=== PATIENT | male | born 1975 | race Caucasian/White ===

== ENCOUNTER 2019-02-25 05:33 | Observation (INO) | payer SELFPAY ==
[2019-02-25] VITALS (10 sets, daily range): BP systolic 110–142; BP diastolic 75–93; PULSE 76–89; RESP 16–25; TEMP 36.4–37.2; O2SAT 96–100; BMI 23.0; BMI 22.7; BMI 22.8
--- NOTE | 2019-02-25 05:49 | EKG12_ITS ---
Test Reason : CP ADMISSION Blood Pressure : / mmHG Vent. Rate : 078 BPM Atrial Rate : 078 BPM P-R Int : 170 ms QRS Dur : 114 ms QT Int : 416 ms P-R-T Axes : 029 006 021 degrees QTc Int : 474 ms Normal sinus rhythm Normal ECG When compared with ECG of 25-FEB-2019 05:32, MANUAL COMPARISON REQUIRED, DATA IS UNCONFIRMED Confirmed by AYAH BALDWIN, ANILA ([id number]), news assignment editor REID BARON ([id number]) on 02/26/2019 1:25:53 PM Referred By: LEEANN Confirmed By:ANA LILIA POON MD
--- NOTE | 2019-02-25 05:49 | RAD_ITS ---
STUDY: X-RAY CHEST REASON FOR EXAM: Male, 43 years old. CP AND SOB X 3 DAYS TECHNIQUE: Frontal and lateral views of the chest. COMPARISON: None. FINDINGS: The lungs are clear and expanded. There is no demonstrated pleural abnormality. Normal size heart. Normal mediastinum and meng. Normal visualized pulmonary arteries. Normal visualized aortic arch and descending thoracic aorta. Normal visualized thoracic spine. Normal visualized ribs, clavicles, and shoulders. There is no demonstrated abnormality of the visualized soft tissue structures of the upper abdomen. RAD/Chest PA and Lateral IMPRESSION: Normal x-ray examination of the chest. Electronically Signed: Ankur Mobley MD at 6:11 EST Tel , Service support ,
--- NOTE | 2019-02-25 05:50 | VDLE_ITS ---
Reason For Study: Pain RIGHT LEFT CFV is compressible, spontaneous, phasic, GSV is normal. competent and demonstrates normal CFV is compressible, spontaneous, phasic, augmentation. competent, and demonstrates normal Procedure augmentation. Exam performed portable in patient room. FV is compressible, spontaneous, phasic, A preliminary report was called and/or faxed competent and demonstrates normal to PCU. augmentation. POP V is compressible, spontaneous, phasic, competent and demonstrates normal augmentation. T/P Trunk is compressible. PTV is compressible. LT PerV is compressible. Interpretation Summary There is no evidence of left lower extremity deep vein thrombosis. Left great saphenous vein appears patent and compressible segmentally. Patent and compressible right common femoral vein Ordering Physician: Benjamin David Performed By: Tiarra Latham RVT
--- NOTE | 2019-02-25 05:52 | ED.VIS.GEN ---
History of Present Illness Chief Complaint: Chest Pain Narrative: Patient is a 43-year-old male who presents with chest pain and shortness of breath. He states he initially developed symptoms 3 days ago with left leg cramping and pain which has since resolved. He also complains of 3 days of chest pain in the center of his chest. When asked to characterize this he states it is both heavy and sharp. His symptoms are worse with exertion. He also feels short of breath and complains of shortness of breath with exertion. He states this morning when he woke up he was soaked diaphoretic and nauseated. He reports a prior history of a heart attack due to low potassium. It does not sound like he has a history of coronary disease. He has had a normal stress test never had a cardiac catheterization or stents. He is not a smoker. No diabetes or hyperlipidemia. He was previously diagnosed with hypertension and prescribed medications but no longer takes these but has been told on recent appointments regarding an arm injury that his blood pressure was high and he needed to follow-up for this. There is not a family history of coronary artery disease at age less than 55. Patient denies DVT risk factors such as recent travel, surgery, known coagulopathies, prior DVT, recent hospitalization. Past Medical History - Allergies and Home Meds Allergies/Adverse Reactions: Allergies amoxicillin Allergy (Verified 02/25/19 05:34) Hives ketorolac [From Toradol] Allergy (Verified 02/25/19 05:34) Hives Primary Care Physician: NOT,DEFINED [NON-STAFF] - Past Medical History: - - Hypertension, untreated Smoking Status: Never smoker Review of Systems All systems negative except as indicated General: Reports: Sweats. Denies: Fever Eyes: Denies: Visual changes - bilaterally Cardiovascular: Reports: Chest pain Respiratory: Reports: Dyspnea Gastrointestinal: Reports: Nausea. Denies: Vomiting Musculoskeletal: Reports: Myalgias Skin: Denies: Rash Neurological: Denies: Headache Hematologic: Denies: Easy bruising Allergy: Denies: Uticaria Physical Exam Vital Signs/Narrative: Vital Signs Temp Pulse Resp BP Pulse Ox 02/25/19 05:35 97.6 F L 89 25 H 142/88 H 100 Inital Vital Signs reviewed: Yes General: Well nourished, Well developed Head: Normocephalic Eyes: EOMI ENT: Moist mucous membranes Neck: Supple Cardiovascular: Regular rate, Regular rhythm, - - Easily palpable distal pulses Respiratory: No distress, CTA bilaterally Abdomen: Soft, Nontender, Nondistended Extremities: Nontender, No edema Skin: Normal color Neurological: Alert Psychological: Normal affect Diagnostic/Tx/Re-eval Impressions Chest X-Ray 02/25/19 05:49 IMPRESSION: Normal x-ray examination of the chest. Electronically Signed: Ankur Mobley MD at 6:11 EST Tel , Service support , 02/25/19 05:49 Chest PA and Lateral [RAD] Stat Laboratory Results 02/25/19 02/25/19 02/25/19 05:40 05:40 05:40 WBC 8.1 RBC 5.28 Hgb 16.1 Hct 47.3 MCV 89.6 MCH 30.5 MCHC 34.0 RDW Std Deviation 39.8 RDW Coeff of Karen 12.1 Plt Count 272 MPV 9.7 Immature Gran % (Auto) 0.400 Neut % (Auto) 68.7 Lymph % (Auto) 21.9 [place] % (Auto) 7.8 Eos % (Auto) 1.0 Baso % (Auto) 0.2 Absolute Neuts (auto) 5.5 Absolute Lymphs (auto) 1.76 Nucleated RBC % 0 D-Dimer Quant (PE/DVT) < 0.27 L Sodium 139 Potassium 3.8 Chloride 101 Carbon Dioxide 29.0 Anion Gap 9 BUN 12 Creatinine 1.05 Estim Creat Clear Calc 84.81 Est GFR (MDRD) Af Amer 99 Est GFR (MDRD) Non-Af 82 BUN/Creatinine Ratio 11.4 Glucose 111 H Calcium 9.8 Troponin I < 0.015 - Medical Decision Making Some of the patient's symptoms are concerning for possible DVT or pulmonary embolism while other features could suggest cardiac ischemia/angina. Patient placed on cardiac monitoring. He was given aspirin and nitroglycerin. EKG shows normal sinus rhythm at a rate of 90 with no acute ischemic changes. Patient did report improvement in symptoms with nitroglycerin although he did develop a headache. He was given Tylenol. Chest x-ray shows no acute process and laboratory studies were unremarkable with a negative troponin and negative d-dimer. Patient's heart score is 3. However I am concerned given his classic description of some symptoms with dyspnea on exertion, nausea, diaphoresis, improvement with nitroglycerin. Therefore I do still feel he should be placed in observation for serial enzymes and stress testing. Patient discussed with the hospitalist who agrees to admit. ED Disposition - Plan for ED Patient: Disposition: Acute [facility] Diagnosis: Chest pain Referrals: NOT,DEFINED [NON-STAFF] -
[2019-02-25 06:01] LABS: Absolute Lymphocyte Count 1.76 X10^3/uL (0.83-4.51); Absolute Neutrophil Count 5.5 X10^3/uL (2.0-7.7); Basophil# 0.02 X10^3/uL; Basophil% 0.2 % (0-1); Eosinophil# 0.08 X10^3/uL; Hematocrit 47.3 % (40-54); Hemoglobin 16.1 g/dL (13.0-16.5); Lymphocyte # 1.76 X10^3/ul (4.0); Lymphocyte % 21.9 % (19-41); Mean Corpuscular Hgb 30.5 pg (27.0-32.0); Mean Corpuscular Volume 89.6 fL (80-94); Mean Platelet Vol. 9.7 fl (6.2-12.0); Monocyte# 0.63 X10^3/uL; Monocyte% 7.8 % (0-10); NRBC Flagged by Analyzer 0 % (0-5); Neutrophil # 5.53 X10^3/uL (2.7-7.7); Neutrophil % 68.7 % (47-70); Platelet Count 272 K/mm3 (150-450); RBC Distribution Width CV 12.1 % (11.6-14.6); RBC Distribution Width SD 39.8 fl (35.1-43.9); Red Blood Count 5.28 M/mm3 (4.6-6.2); White Blood Count 8.1 K/mm3 (4.4-11.0)
[2019-02-25] MEDS: Aspirin 81 MG TAB.CHEW 324 MG PO (06:05)
[2019-02-25] MEDS: Nitroglycerin SL (ED/IMG/CATH) 0.4 MG TABLET SUBLINGUAL ×3 (06:10→06:14)
[2019-02-25 06:14] LABS: Anion Gap 9 (5-15); BUN 12 mg/dL (7-18); BUN/Creat Ratio 11.4 RATIO (10-20); Calcium,Total 9.8 mg/dL (8.5-10.1); Chloride 101 mmol/L (98-107); Creatinine, Serum 1.05 mg/dL (0.70-1.30); EST Glomerular Filtration Rate 82 mL/min (>60); Est Glom Filt Rate - Afr Amer 99 mL/min (>60); Estimated Creatinine Clearance 84.81 ml/min; Glucose 111 mg/dL (74-106); Potassium 3.8 mmol/L (3.5-5.1); Sodium Level 139 mmol/L (136-145)
[2019-02-25 06:17] LABS: D-Dimer Quantitative (DVT/PE) < 0.27 FEU/ug/m (0.27-0.49)
[2019-02-25] MEDS: Acetaminophen 500 MG Tablet 1000 MG PO (06:19)
--- NOTE | 2019-02-25 06:25 | HP.PCM_ITS ---
Problem List (1) Chest pain Status: Acute Qualifiers: Chest pain type: unspecified Qualified Code(s): R07.9 - Chest pain, unspecified History of Present Illness Date of Admission: 02/25/19 Chief Complaint: Chest pain - 3-4 days The patient is a 43 year old M with remote history of hypertension, not on medication, fairly healthy who comes in with complaints of substernal chest pain that radiates to his back, associated with diaphoresis and dizziness but no palpitations or presyncope or syncope. His chest pain started 3 to 4 days ago. Got worse last night. He woke up soaked in sweat. He denies any history of smoking. No history of heart disease. He has a history of hypokalemia for which his potassium was said to be 1.9 years ago and that was corrected. He also complains of cramps and pain in his left calf Vitals in the ED showed pressure of 97.6F, heart rate 89, blood pressure 142/88, respiratory 25, SPO2 was 100% on room air. His admitting blood work showed unremarkable CBC D as well as BMP. D-dimer was less than 0.27. Troponin was 0.015. EKG showed normal sinus rhythm with no acute ST changes. Past Medical History Allergies amoxicillin Allergy (Verified 02/25/19 05:34) Hives ketorolac [From Toradol] Allergy (Verified 02/25/19 05:34) Hives Home Medications: Ambulatory Orders Medication Instructions Recorded NK 02/25/19 Surgical History: appendectomy Psychiatric History: No pertinent psych hx Lives: Alone Smoking Status: Never smoker Tobacco Use: Chew Alcohol: None Drugs: None - *Family History Maternal History Items: Hypertension Paternal History Items: Hypertension Review of Systems Constitutional: Reports: Anorexia, Malaise, Weakness, Fatigue. Denies: Chills, Fever, Weight Change Eyes: Denies: Blurred vision, Cataracts, Conjunctivae Inflammation, Pain, Redness, Vision Change HEENT: Denies: Difficulty Hearing, Difficulty Swallowing, Head Aches, Hearing Changes, Nasal bleeding, Sinus Congestion, Sinus Drainage Cardiovascular: Reports: Chest Pain, Chest Pressure, Chest Tightness, Light Headedness. Denies: Palpitations, Paroxysmal Noc. Dyspnea, Syncope Respiratory: Denies: Cough, Hemoptysis, Shortness of breath at rest, Shortness of breath upon exertion, Sputum production Gastrointestinal: Denies: Abdominal Pain, Hematemesis, Hematochezia, Nausea, Vomiting Genitourinary: Denies: Dysuria, Frequency, Incontinence Musculoskeletal: Denies: Joint Pain, Joint stiffness, Joint swelling, Joint Tenderness Skin: Denies: Pruritis, Rash, Wounds Neurological: Denies: Difficulty swallowing, Focal weakness, Numbness, Tingling Psychiatric: Denies: Anxiety, Depression, Homicidal Ideations, Suicidal Ideations Hematologic/ Lymphatic: Denies: Easy Bruising, Easy Bleeding VTE Information - Inpt Only VTE Present on Admission: No VTE Pharm Prophylaxis ordered?: Yes Patient Problems: Active and Suspected Problems Chest pain (Acute) - Physical Exam Vitals/I&O's: Vital Signs Temp Pulse Resp BP Pulse Ox 97.6 F L 88 17 113/84 H 100 02/25/19 05:35 02/25/19 06:14 02/25/19 05:52 02/25/19 06:14 02/25/19 05:52 Oxygen Delivery Method Room Air Weight: 66.6 kg Body Mass Index (BMI) 23.0 General: Alert, Oriented x3, Cooperative, - - in mild discomfort from pain in legs HEENT: Atraumatic, PERRLA, EOMI, Normocephalic Oral: Moist Mucosa Neck: Supple Lungs: Clear to auscultation, Normal air movement Cardiovascular: Regular rate, Regular Rhythm, Normal S1, Normal S2, No murmurs Abdomen: Bowel Sounds Present, Soft, Non Tender, Non-Distended, No Hepato- splenomegaly Extremities: No edema, Capillary Refill Less than 3 Seconds Skin: No rashes, No breakdown Musculoskeletal: No Tenderness to Palpation of Joints or Extremities Lymphatic: No Cervical, Supraclavicular, or Inguinal Adenopathy Neurological: Cranial nerves II-XII grossly intact Psych/Mental Status: Normal Affect, Appropriate Laboratory Results 02/25/19 05:40: WBC 8.1, RBC 5.28, Hgb 16.1, Hct 47.3, MCV 89.6, MCH 30.5, MCHC 34.0, RDW Std Deviation 39.8, RDW Coeff of Karen 12.1, Plt Count 272, MPV 9.7, Immature Gran % (Auto) 0.400, Neut % (Auto) 68.7, Lymph % (Auto) 21.9, [place] % (Auto) 7.8, Eos % (Auto) 1.0, Baso % (Auto) 0.2, Absolute Neuts (auto) 5.5, Absolute Lymphs (auto) 1.76, Nucleated RBC % 0 02/25/19 05:40: Sodium 139, Potassium 3.8, Chloride 101, Carbon Dioxide 29.0, Anion Gap 9, BUN 12, Creatinine 1.05, Estim Creat Clear Calc 84.81, Est GFR (MDRD) Af Amer 99, Est GFR (MDRD) Non-Af 82, BUN/Creatinine Ratio 11.4, Glucose 111 H, Calcium 9.8, Troponin I < 0.015 02/25/19 05:40: D-Dimer Quant (PE/DVT) < 0.27 L Assessment/Plan All Active Problems Chest pain (Acute) 43 year old M with remote history of hypertension, not on medication, fairly healthy who comes in with complaints of substernal chest pain that radiates to his back, associated with diaphoresis and dizziness but no palpitations or presyncope or syncope. 1. Acute Chest pain, typical, suggestive of angina EKG shows no acute ST changes, troponins are negative Admit to PCU, trend troponins, stress test, aspirin 81 mg p.o. daily, nitro as needed, lipid profile 2. Acute left lower extremity pain/cramps, d-dimer negative Blood ultrasound ordered by ED, will need to be followed up Would also check serum magnesium 3. DVT [id number], early ambulation recommended Code Visit OBSV E&M: 30096 Initial observation care L2
[2019-02-25 08:09] LABS: Cholesterol 183 mg/dL (200); High Density Lipoprotein 60 mg/dL; Magnesium 2.1 mg/dL (1.6-2.6); Triglycerides 102 mg/dL; Very Low Density Lipoprotein 20 mg/dL (5-40)
[2019-02-25] MEDS: oxyCODONE 5 MG Tablet PO ×2 (08:27→14:05)
--- NOTE | 2019-02-25 08:46 | EKG12_ITS ---
Test Reason : CP Blood Pressure : / mmHG Vent. Rate : 090 BPM Atrial Rate : 090 BPM P-R Int : 136 ms QRS Dur : 116 ms QT Int : 400 ms P-R-T Axes : 014 -06 027 degrees QTc Int : 489 ms Normal sinus rhythm Prolonged QT Abnormal ECG Confirmed by NARENDRA BALDWIN, YOJANA ([id number]), desk editor VOLODYMYR CARCAMO ([id number]) on 03/01/2019 10:08:57 AM Referred By: ERNESTINA Confirmed By:YOJANA MACKEY MD
[2019-02-25] MEDS: LORazepam 2 MG/ML Syringe 1 MG IV (10:23)
[2019-02-25] MEDS: 0.9% Saline Lock 10 ML Syringe IV (10:25)
--- NOTE | 2019-02-25 14:45 | NURSING ---
Pt impatient concerning stress test results. Threatening to leave AMA. Charge nurse Tiffany kent.
--- NOTE | 2019-02-25 14:50 | NURSING ---
Pt removing tele, and leaving AMA. Pt refuses to sign AMA paper. Pt's copy of AMA paper found in elevator.
--- NOTE | 2019-02-25 15:08 | STRESSREP ---
Stress Test Report Date: 02/25/2019 Procedure: Pharmacologic stress nuclear imaging study Indications: Chest pain Consent: Per the patient Procedure: The patient underwent pharmacologic (Regadenoson) evaluation with a peak heart rate of 99 beats per minute (55 %predicted maximal heart rate) and a peak blood pressure of 124/80 mmHg. The baseline ECG demonstrated normal sinus rhythm, nonspecific ST-T changes. EKG during lexiscan infusion revealed no significant change from baseline. EKG post infusion revealed no significant change from baseline. [There were no cardiac dysrhythmias pretest, during pharmacologic infusion, or recovery]. [There was no complaint of chest discomfort during pharmacologic infusion or recovery]. The examination was discontinued secondary to completion of protocol. Impression: 1. Lexiscan stress test test is negative for Lexiscan infusion induced EKG changes of ischemia. 2. Lexiscan stress test test is negative for Lexiscan infusion induced chest pain. 3. Results of the nuclear portion of the test is as below Myocardial perfusion imaging study: Technique: The patient was injected with [12] millicuries of technetium 99m Cardiolite and subsequently rest SPECT Cardiolite nuclear imaging was obtained in the horizontal long, vertical long, and short axis views. The patient underwent pharmacologic (Regadenoson) evaluation. Please see above for details. The patient was injected with [] millicuries of technetium 99m Cardiolite and subsequently stress SPECT Cardiolite nuclear imaging was obtained in the horizontal long, vertical long, and short axis views. A gated Cardiolite study at peak stress was obtained. Interpretation: Rest and stress SPECT Cardiolite nuclear imaging status post realignment, normalization, and attenuation correction demonstrate no significant fixed or reversible defects suggestive of significant ischemia or infarction. There is possible diaphragmatic attenuation artifact. Gated images reveal no significant regional wall motion abnormalities. The reported LVEF is greater than 70 %. Impression: 1. There is no evidence of significant ischemia or infarction. 2. Estimated ejection fraction is greater than 70%. This note was generated with rapt.fm software. It may contain incorrect words, spelling, and punctuation that were not noted in checking the note before signing.
--- NOTE | 2019-02-25 15:53 | DS.PCM_ITS ---
<Noah Bella - Last Filed: 02/25/19 15:53> Discharge Date and Diagnosis Date of Admission: 02/25/19 Date of Discharge: 02/25/19 - Primary Discharge Diagnosis Chest pain unclear etiology Left AMA Anxiety Hospital Course and Treatment Imaging Results: 02/25/19 07:38 Nuclear Stress Test - Chemical [NM] Routine PENDING RAD/Chest PA and Lateral IMPRESSION: Normal x-ray examination of the chest. LE Venous duplex Interpretation Summary There is no evidence of left lower extremity deep vein thrombosis. Left great saphenous vein appears patent and compressible segmentally. Patent and compressible right common femoral vein Operations: None Procedures: Stress test Summary of Care Provided: Hospital course: The patient is a 43 year old M who presented to the emergency room with complaints of chest pain. He had been experiencing this for the past 3 to 4 days. He described it as substernal chest pain radiating into his back with some sweating and dizziness. He woke up soaked in sweat. Also complained of cramps in his left calf. In the ER he had negative troponin, negative chest x- ray. Venous ultrasound of the lower extremity did not show DVT. He was admitted for chest pain work-up. Troponin was negative x2, d-dimer was negative, and telemetry was unremarkable. He was very anxious about remaining in the hospital, he was concerned that he was too anxious to remain for the stress test however he agreed to stay after receiving Ativan. Unfortunately after the stress test prior to the results coming back he left AMA. This patient was seen by Noah Bella PA-C under the supervision of Doctor Richelle. [] - Physical Exam Vitals/I&O's: Vital Signs Temp Pulse Resp BP Pulse Ox 98.6 F 88 16 136/76 H 100 02/25/19 14:10 02/25/19 14:10 02/25/19 14:10 02/25/19 14:10 02/25/19 14:10 Oxygen Delivery Method Room Air Weight: 145 lb 4.554 oz Body Mass Index (BMI) 22.7 General: Alert, Oriented x3, Cooperative HEENT: Atraumatic, PERRLA, EOMI, Normocephalic Neck: Supple, No JVD, Negative Carotid Bruits Lungs: Clear to auscultation, Normal air movement Cardiovascular: Regular rate, No murmurs Abdomen: Bowel Sounds Present, Soft, Non Tender Extremities: No edema, Capillary Refill Less than 3 Seconds Skin: No rashes, No breakdown Musculoskeletal: No Tenderness to Palpation of Joints or Extremities Neurological: Cranial nerves II-XII grossly intact Psych/Mental Status: Appropriate, Anxious Laboratory Results 02/25/19 05:40: WBC 8.1, RBC 5.28, Hgb 16.1, Hct 47.3, MCV 89.6, MCH 30.5, MCHC 34.0, RDW Std Deviation 39.8, RDW Coeff of Karen 12.1, Plt Count 272, MPV 9.7, Immature Gran % (Auto) 0.400, Neut % (Auto) 68.7, Lymph % (Auto) 21.9, [place] % (Auto) 7.8, Eos % (Auto) 1.0, Baso % (Auto) 0.2, Absolute Neuts (auto) 5.5, Absolute Lymphs (auto) 1.76, Nucleated RBC % 0 02/25/19 05:40: Sodium 139, Potassium 3.8, Chloride 101, Carbon Dioxide 29.0, Anion Gap 9, BUN 12, Creatinine 1.05, Estim Creat Clear Calc 84.81, Est GFR (MDRD) Af Amer 99, Est GFR (MDRD) Non-Af 82, BUN/Creatinine Ratio 11.4, Glucose 111 H, Calcium 9.8, Troponin I < 0.015 02/25/19 05:40: D-Dimer Quant (PE/DVT) < 0.27 L 02/25/19 05:40: Magnesium 2.1, Triglycerides 102, Cholesterol 183, LDL Cholesterol 103, VLDL Cholesterol 20, HDL Cholesterol 60 02/25/19 09:35: Troponin I < 0.015 Home Medications: Medications to take at Discharge Gabapentin [Neurontin] 02/25/19 Primary Care Physician: NOT,DEFINED [NON-STAFF] - Disposition: Against Medical Advice Minutes spent on discharge:: 35 Patient Condition:: Guarded Medical Necessity - Tobacco Use Smoking Status: Never smoker Tobacco Use: Chew Meaningful Use Info Meaningful Use Diagnoses (Choose all that apply): None applicable <Kiki Peoples - Last Filed: 02/25/19 16:06> Hospital Course and Treatment Imaging Results: 02/25/19 07:38 Nuclear Stress Test - Chemical [NM] Routine Summary of Care Provided: Patient seen by Noah Bella PA-C under my supervision. The patient is a 43 year old M who was admitted with a complaint of chest pain which have been going on for about 3 to 4 days prior to admission and was substernal and radiated to his back. He had a still sweating and dizziness. Troponins x3 were negative and chest x-ray was also negative. D-dimer was negative. Duplex of his lower extremity showed no evidence of DVT. He had a stress test on 02/25/2019 which was negative for any ischemia. Patient remained stable and was discharged home on 02/25/2019. He is follow-up with his primary care doctor within 1 week. Patient seen and examined prior to discharge. He had no complaints. Review of systems otherwise negative. Labs and vitals reviewed. Home medication reviewed and reconciled. O/e: Vital Signs Height 5 ft 7 in Weight: 145 lb 4.554 oz Weight in Pounds 145.3 lbs Pulse Ox 100 Temperature 98.6 F Pulse Rate 88 Respiratory Rate 16 Blood Pressure 136/76 Blood Pressure Position Semi-Fowlers [] General: Alert, Oriented x3, Cooperative HEENT: Atraumatic, PERRLA, EOMI, Normocephalic Neck: Supple, No JVD, Negative Carotid Bruits Lungs: Clear to auscultation, Normal air movement Cardiovascular: Regular rate, No murmurs, normal S1 and S2 Abdomen: Bowel Sounds Present, Soft, Non Tender Extremities: No edema, Capillary Refill Less than 3 Seconds Skin: No rashes, No breakdown Musculoskeletal: No Tenderness to Palpation of Joints or Extremities Neurological: Cranial nerves II-XII grossly intact Psych/Mental Status: Appropriate, Plan is as above. For discharge home today. Rest of management as per Noah Bella PA-C's note which I have reviewed and endorsed - Physical Exam Vitals/I&O's: Vital Signs Temp Pulse Resp BP Pulse Ox 98.6 F 88 16 136/76 H 100 02/25/19 14:10 02/25/19 14:10 02/25/19 14:10 02/25/19 14:10 02/25/19 14:10 Oxygen Delivery Method Room Air Weight: 145 lb 4.554 oz Body Mass Index (BMI) 22.7 Laboratory Results 02/25/19 05:40: WBC 8.1, RBC 5.28, Hgb 16.1, Hct 47.3, MCV 89.6, MCH 30.5, MCHC 34.0, RDW Std Deviation 39.8, RDW Coeff of Karen 12.1, Plt Count 272, MPV 9.7, Immature Gran % (Auto) 0.400, Neut % (Auto) 68.7, Lymph % (Auto) 21.9, [place] % (Auto) 7.8, Eos % (Auto) 1.0, Baso % (Auto) 0.2, Absolute Neuts (auto) 5.5, Absolute Lymphs (auto) 1.76, Nucleated RBC % 0 02/25/19 05:40: Sodium 139, Potassium 3.8, Chloride 101, Carbon Dioxide 29.0, Anion Gap 9, BUN 12, Creatinine 1.05, Estim Creat Clear Calc 84.81, Est GFR (MDRD) Af Amer 99, Est GFR (MDRD) Non-Af 82, BUN/Creatinine Ratio 11.4, Glucose 111 H, Calcium 9.8, Troponin I < 0.015 02/25/19 05:40: D-Dimer Quant (PE/DVT) < 0.27 L 02/25/19 05:40: Magnesium 2.1, Triglycerides 102, Cholesterol 183, LDL Cholesterol 103, VLDL Cholesterol 20, HDL Cholesterol 60 02/25/19 09:35: Troponin I < 0.015 Code Visit OBSV E&M: 49008 Observ/hosp same date L2
== END 2019-02-25 14:57 | disposition left against medical advice (07) ==
LOC: ED 06:25 → PCU 06:31
PROVIDERS: Admitting Provider Internal Medicine; Emergency Provider Emergency Medicine; Visit Provider Student in an Organized Health Care Education/Training Program
DX: R07.89 Other chest pain (principal); R06.02 Shortness of breath; I10 Essential (primary) hypertension; R06.09 Other forms of dyspnea; R11.0 Nausea; F17.220 Nicotine dependence, chewing tobacco, uncomplicated; M79.605 Pain in left leg; I45.81 Long QT syndrome
CPT/HCPCS: 36415; 71046; 78452; 80048; 80061; 83735; 84484; 85025; 85379; 93005; 93017; 93971; 96374; 99218; 99285; 99406; A9500; J7030; A4216; G0378; J2785